=== PATIENT | male | born 1965 | race American Indian/Alaskan Native ===

== ENCOUNTER 2017-05-07 17:01 | Inpatient (IN) | payer OTHER ==
[2017-05-07 17:25] VITALS: BMI 30.4
--- NOTE | 2017-05-07 17:48 | ED PDOC ---
Arrival/HPI - General Chief Complaint: Abnormal Skin Integrity Time Seen by Provider: 05/07/17 17:27 Historian: Patient - History of Present Illness Narrative History of Present Illness (Text): 05/07/17 17:45 52-year-old male presents today with right leg pain and redness that started approximately 4 hours prior to arrival. Patient states he has 5 episodes of cellulitis in that right leg in the past. Patient is complaining of pain swelling and redness to the right leg. Patient states he noticed inflamed right inguinal lymph nodes. Patient states these are the exact symptoms that occurs when ever he has a start of the cellulitis in the leg. He denies fevers or chills. He denies trauma or injury. Denies numbness weakness or tingling in the extremity. No medications taken for pain at home. No other complaints. Time/Duration: 4-6 hours Symptom Onset: Gradual Symptom Course: Worsening Quality: Aching Past Medical History - Provider Review Nursing Documentation Reviewed: Yes - Travel History Have you recently traveled outside [place] w/in the past 3 mons?: No - Infectious Disease Hx of Infectious Diseases: None - Tetanus Immunization Tetanus Immunization: Unknown - Musculoskeletal/Rheumatological Hx Musculoskeletal Disorders: Yes Other/Comment: cellulitis of legs hx. - Psychiatric Hx Substance Use: No - Anesthesia Hx Anesthesia: No Family/Social History - Physician Review Nursing Documentation Reviewed: Yes Family/Social History: Unknown Family HX Smoking Status: Never Smoked Hx Alcohol Use: No Hx Substance Use: No Allergies/Home Meds Allergies/Adverse Reactions: Allergies No Known Allergies Allergy (Verified 05/07/17 17:25) Home Medications: Home Meds Medication Instructions Recorded Confirmed No Known Home Med 05/07/17 05/07/17 Review of Systems - Review of Systems Constitutional: absent: Fatigue, Fevers Respiratory: absent: SOB, Cough Cardiovascular: absent: Chest Pain, Palpitations Gastrointestinal: absent: Abdominal Pain, Vomiting Genitourinary Male: absent: Dysuria Musculoskeletal: Arthralgias. absent: Back Pain, Neck Pain Skin: Cellulitis Neurological: absent: Headache, Dizziness Psychiatric: absent: Anxiety, Depression Physical Exam Vital Signs Reviewed: Yes Vital Signs Temp Pulse Resp BP Pulse Ox 05/07/17 17:28 99.3 F 99 H 18 142/81 98 Temperature: Afebrile Blood Pressure: Normal Pulse: Regular Respiratory Rate: Normal Appearance: Positive for: Well-Appearing, Non-Toxic, Comfortable Pain Distress: None Mental Status: Positive for: Alert and Oriented X 3 - Systems Exam Head: Present: Atraumatic Mouth: Present: Moist Mucous Membranes Neck: Present: Normal Range of Motion Respiratory/Chest: Present: Clear to Auscultation, Good Air Exchange. No: Respiratory Distress, Accessory Muscle Use Cardiovascular: Present: Regular Rate and Rhythm, Normal S1, S2. No: Murmurs Abdomen: No: Tenderness Lower Extremity: Present: CALF TENDERNESS, NORMAL PULSES, Normal ROM, Tenderness (Right leg: There is tenderness swelling and erythema noted over the anterior aspect of the right leg. Sensation and distal pulses intact. Cap refill less than 2.), Swelling, Erythema, Neurovascularly Intact, Capillary Refill < 2 s, Other (Warmth). No: Deformity Neurological: Present: GCS=15, Speech Normal Skin: Present: Warm, Dry Lymphatic: Present: Inguinal Adenopathy (Right sided) Psychiatric: Present: Alert, Oriented x 3 Medical Decision Making ED Course and Treatment: 05/07/17 17:47 52-year-old male with a 4 hour history of right leg pain swelling and erythema. CBC: wbc:16 bands; 4 CMP: bun; 31/ cr 1.5 Lactate: wnl blood cultures pending; Venous duplex of the right lower extremity: no dvt; verbal report from US tech. xray right tib/fib; no fracture, no subcutaneous air. pt started on vanco and zosyn IV 05/07/17 20:[address] reyes; accepts admission; case discussed with resident dr. Donnelly. impression; cellulitis, leg, leukocytosis, bandemia admit to med/surg - Lab Interpretations Lab Results: 05/07/17 17:45 05/07/17 17:45 Lab Results 05/07/17 17:45: WBC 16.0 H, RBC 5.30, Hgb 16.6, Hct 45.6, MCV 86.0, MCH 31.3, MCHC 36.4, RDW 12.8, Plt Count 146, MPV 11.1 H, Gran % 93.0 H, Lymph % (Auto) 3.8 L, [place] % (Auto) 3.0, Eos % (Auto) 0.1 L, Baso % (Auto) 0.1, Gran # 14.87 H , Lymph # 0.6 L, [place] # 0.5, Eos # 0.0, Baso # 0.01, Neutrophils % (Manual) 90 H , Band Neutrophils % 4 H, Lymphocytes % (Manual) 4 L, Atypical Lymphs % 2 H, Monocytes % (Manual) 0 L, Platelet Evaluation Normal 05/07/17 17:45: Sodium 139, Chloride 104, Potassium 4.1, Carbon Dioxide 26, Anion Gap 13, BUN 31 H, Creatinine 1.5 H, Est GFR ( Amer) 59, Est GFR ( Non-Af Amer) 49, Random Glucose 108, Calcium 9.3, Total Bilirubin 0.8, AST 57, ALT 53, Alkaline Phosphatase 69, Total Protein 7.5, Albumin 4.1, Globulin 3.4, Albumin/Globulin Ratio 1.2 05/07/17 17:45: pO2 54, VBG pH 7.40, VBG pCO2 43.0, VBG HCO3 26.6, VBG Total CO2 27.9, VBG O2 Sat (Calc) 95.0 H, VBG Base Excess 1.5, VBG Potassium 4.1, Sodium 138.0, Chloride 105.0, Glucose 110, Lactate 1.5, FiO2 21.0, Venous Blood Potassium 4.1 - RAD Interpretation Radiology Orders: 05/07/17 17:27 DUPLEX LOWER EXTRM VEIN RIGHT [US] Stat 05/07/17 17:48 TIBIA FIBULA RIGHT [RAD] Stat - Medication Orders Current Medication Orders: Discontinued Medications Vancomycin HCl (Vancomycin 1gm) 1 gm in 250 mls @ 167 mls/hr IVPB STAT STA PRN Reason: Protocol Stop: 05/07/17 20:39 Last Admin: 05/07/17 19:53 Dose: 167 mls/hr eMAR Start Stop Document 05/07/17 19:53 IT (Rec: 05/07/17 19:53 IT [id number]) Intravenous Solution Start Date 05/07/17 Start Time 19:53 End Date 05/07/17 End time 21:20 Total Infusion Time 87 Piperacillin Sod/Tazobactam Sod (Zosyn 3.375 In Ns 100ml) 100 mls @ 200 mls/hr IVPB STAT STA PRN Reason: Protocol Stop: 05/07/17 19:39 Last Admin: 05/07/17 19:20 Dose: 200 mls/hr eMAR Start Stop Document 05/07/17 19:20 IT (Rec: 05/07/17 19:22 IT [id number]) Intravenous Solution Start Date 05/07/17 Start Time 19:22 End Date 05/07/17 End time 19:50 Total Infusion Time 28 Ketorolac Tromethamine (Toradol) 30 mg IVP STAT STA Stop: 05/07/17 17:28 Last Admin: 05/07/17 18:47 Dose: 30 mg MAR Pain Assessment Document 05/07/17 18:47 IT (Rec: 05/07/17 18:47 IT [id number]) Pain Reassessment Is this a pain reassessment? No Sleep Is patient sleeping during reassessment? No Presence of Pain Presence of Pain Yes Pain Scale Used Pain Scale Used Numeric Location Left, Right or Bilateral Left Pain Location Body Site Groin Description Description Intermittent Intensity of Pain at present 4 IVP Administration Document 05/07/17 18:47 IT (Rec: 05/07/17 18:47 IT [id number]) Charges for Administration # of IVP Administrations 1 Disposition/Present on Arrival - Present on Arrival Any Indicators Present on Arrival: No History of DVT/PE: No History of Uncontrolled Diabetes: No Urinary Catheter: No History of Decub. Ulcer: No History Surgical Site Infection Following: None - Disposition Have Diagnosis and Disposition been Completed?: Yes Diagnosis: Cellulitis, leg, Bandemia, Leukocytosis Disposition: HOSPITALIZED Disposition Time: 19:45 Patient Plan: Admission Condition: FAIR
[2017-05-07 17:59] LABS: VENOUS BLOOD GAS BASE EXCESS 1.5 mmol/L (0.0-2.0)
[2017-05-07 18:00] LABS: BASO # 0.01 K/mm3 (0.0-2.0); BASO % 0.1 % (0.0-3.0); EOS % 0.1 % (1.5-5.0); GRAN # 14.87 (1.4-6.5); HEMATOCRIT 45.6 % (42.0-52.0); LYMPH # 0.6 (1.2-3.4); LYMPH % 3.8 % (22.0-35.0); MEAN CORPUSCULAR HEMOGLOBIN 31.3 pg (25.0-35.0); MEAN CORPUSCULAR HGB CONC 36.4 g/dl (31.0-37.0); MEAN PLATELET VOLUME 11.1 fl (7.0-11.0); MONO # 0.5 (0.1-0.6); PLATELET COUNT 146 10^3/uL (120.0-450.0); RED CELL DISTRIBUTION WIDTH 12.8 % (11.5-14.5)
[2017-05-07 18:08] LABS: ALB/GLOB RATIO 1.2 (1.1-1.8); BILIRUBIN,TOTAL 0.8 mg/dL (0.2-1.3); CALCIUM 9.3 mg/dL (8.4-10.5); POTASSIUM 4.1 mmol/L (3.6-5.0); TOTAL PROTEIN 7.5 g/dL (5.8-8.3)
--- NOTE | 2017-05-07 18:36 | US ---
PROCEDURE: Right lower extremity venous US HISTORY: Leg pain and swelling. Evaluate for DVT. PHYSICIAN(S): Zurdo Little M.D. TECHNIQUE: Duplex sonography and color-flow Doppler with graded compression were used to evaluate the deep venous system of the right lower extremity. FINDINGS: The visualized deep venous system of the right lower extremity is sonographically normal and compressible. Normal waveforms and augmentation are seen. There is no sonographic evidence for deep venous thrombosis in the visualized segments of the right lower extremity. IMPRESSION: 1. No sonographic evidence for deep venous thrombosis in the visualized segments of the right lower extremity.
[2017-05-07 19:02] LABS: ATYPICAL LYMPHOCYTE 2 % (0.0-0.0); BAND 4 % (0-2); NEUTROPHIL 90 % (50.0-70.0)
[2017-05-07 19:03] LABS: PLATELET ESTIMATE NORMAL (NORMAL)
[2017-05-07] MEDS ORDERED: Vancomycin 1gm in NS 250ml 1 GM/250 ML BAG IVPB STA (19:10)
[2017-05-07] MEDS ORDERED: Piperacillin/Tazobact 3.375 gm 100 ML IVPB STA ×2 (19:10→20:38)
--- NOTE | 2017-05-07 22:54 | CP.PCM.HP ---
History of Present Illness - History of Present Illness History of Present Illness: H&P Dr. Horton Service CC: RLE pain & swelling 52 M with no significant PMHx presents to the [facility] [place] ED with complaints of RLE pain & swelling. Pt states at approx 11am this morning, he experienced a heaviness, swelling, and pain localized to the right groin. After a couple of hours in the afternoon, he started to realized his right leg develop "red streaks" and was warm to the touch. Pt states that at that time he felt feverish and overall not so well. Pt states that he has experienced cellulitis approximately 5 times in the past and his current symptoms are similar in presentation to his previous episodes. 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 Pt was seen and examined at bedside. Pt has mild complaints of Right groin swelling and pain, rated at a 5/10 and localized without radiation. Pt currently denies RLE pain. He was given NSAIDs and IV abx in ED. Pt denied fever, chills, sob, chest pains, abdominal pains, n/v/d/c or urinary symptoms. 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 - PSYCHIATRIC Hx Substance Use: No - SURGICAL HISTORY Hx Surgeries: No - ANESTHESIA Hx Anesthesia: No Meds Allergies/Adverse Reactions: Allergies Allergy/AdvReac Type Severity Reaction Status Date / Time No Known Allergies Allergy Verified 05/07/17 17:25 Physical Exam - Constitutional Appears: No Acute Distress - Head Exam Head Exam: ATRAUMATIC, NORMAL INSPECTION, NORMOCEPHALIC - Eye Exam Eye Exam: EOMI, Normal appearance, PERRL Pupil Exam: NORMAL ACCOMODATION, PERRL - ENT Exam ENT Exam: Mucous Membranes Moist, Normal Exam - Neck Exam Neck exam: Positive for: Normal Inspection - Respiratory Exam Respiratory Exam: Clear to Auscultation Bilateral, NORMAL BREATHING PATTERN - Cardiovascular Exam Cardiovascular Exam: REGULAR RHYTHM, +S1, +S2 - GI/Abdominal Exam GI & Abdominal Exam: Normal Bowel Sounds, Soft. absent: Tenderness - Exam Additional comments: Inguinal tenderness to palpation - Extremities Exam Additional comments: RLE erythema - Back Exam Back exam: NORMAL INSPECTION - Neurological Exam Neurological exam: Alert, CN II-XII Intact, Normal Gait, Oriented x3, Reflexes Normal - Psychiatric Exam Psychiatric exam: Normal Affect, Normal Mood - Skin Skin Exam: Dry, Intact, Normal Color, Warm Additional comments: RLE Erythema Results - Vital Signs Recent Vital Signs: Last Vital Signs Temp 99.2 F 05/07/17 21:28 Pulse 82 05/07/17 21:28 Resp 17 05/07/17 21:28 BP 141/61 05/07/17 21:28 Pulse Ox 98 05/07/17 21:28 - Labs Result Diagrams: 05/07/17 17:45 05/07/17 17:45 Assessment & Plan - Assessment and Plan (Free Text) Assessment: 52 M with no significant PMHx presented to the [facility] [place] ED with complaints of RLE erythema, swelling, and pain. Pt is admitted for RLE Cellulitis RLE Cellulitis - IV vancomycin and zosyn - Pedal pulses 3+ b/l - Venous duplex of the right lower extremity: no dvt - Xray right tib/fib; no fracture, no subcutaneous air. - Fu Bcx - Warm compress and elevate - ID Dr. Oliva consulted Leukocytosis with bandemia - 2/2 RLE - WBC: 16 - fu BCx - Continue IV abx - afebrile - Fu ID reccs Inguinal Lymphadenopathy/pain - 2/2 RLE Cellulitis - analgesics - continue to monitor JASON - dehydration - prerenal, BUN: 31, Cr: 1.5 - Continue to monitor BUN/Cr, UOP - avoid nephrotoxic drugs GI PPx - Protonix DVT PPx - Heparin Seen reviewed and discussed with attending
[2017-05-08] MEDS: Piperacillin/Tazobact 3.375 gm 100 ML IVPB SCH ×2 (00:37→06:54)
[2017-05-08 06:25] LABS: BASO # 0.01 K/mm3 (0.0-2.0); BASO % 0.1 % (0.0-3.0); EOS % 0.1 % (1.5-5.0); GRAN # 12.06 (1.4-6.5); GRAN % 90.4 % (50.0-68.0); HEMATOCRIT 43.1 % (42.0-52.0); LYMPH # 0.6 (1.2-3.4); LYMPH % 4.7 % (22.0-35.0); MEAN CELL VOLUME 86.5 fl (80.0-105.0); MEAN CORPUSCULAR HEMOGLOBIN 30.7 pg (25.0-35.0); MEAN CORPUSCULAR HGB CONC 35.5 g/dl (31.0-37.0); MEAN PLATELET VOLUME 9.9 fl (7.0-11.0); MONO # 0.6 (0.1-0.6); MONO % 4.7 % (1.0-6.0); RED CELL DISTRIBUTION WIDTH 13.4 % (11.5-14.5); WHITE BLOOD COUNT 13.3 10^3/ul (4.5-11.0)
[2017-05-08 06:30] LABS: INR 1.17 (0.93-1.08); PARTIAL THROMBOPLASTIN TIME 31.5 Seconds (23.7-30.8)
[2017-05-08] MEDS: Pantoprazole 40 mg EC Tab PO SCH (06:55)
[2017-05-08 06:57] LABS: ALKALINE PHOSPHATASE 60 U/L (38-126); ALT/SGPT 46 U/L (7-56); AST/SGOT 40 U/L (17-59); BILIRUBIN,TOTAL 0.9 mg/dL (0.2-1.3); BLOOD UREA NITROGEN 20 mg/dL (7-21); CALCIUM 8.7 mg/dL (8.4-10.5); CARBON DIOXIDE 24 mmol/L (21-33); CHLORIDE 110 mmol/L (98-107); GFR AFRICAN-AMERICAN > 60; GLUCOSE,RANDOM 106 mg/dL (70-110); POTASSIUM 4.2 mmol/L (3.6-5.0); SODIUM 141 mmol/L (132-148); TOTAL PROTEIN 6.5 g/dL (5.8-8.3)
--- NOTE | 2017-05-08 07:45 | RAD ---
PROCEDURE: Radiographs of the right tibia and fibula. HISTORY: right lower leg pain COMPARISON: None available. TECHNIQUE: Frontal and lateral views obtained. FINDINGS: BONES: No fracture or destructive lesion. JOINT SPACES: Unremarkable. OTHER FINDINGS: None. IMPRESSION: Unremarkable radiographs of the right tibia and fibula.
[2017-05-08] MEDS: cefTRIAXone 1 gm 1 GM/100 ML BAG IVPB SCH (07:48)
[2017-05-08] MEDS: Sodium Chloride 0.9% 1,000 ML IV SCH (09:35)
[2017-05-08] MEDS: Vancomycin 1gm in NS 250ml 1 GM/250 ML BAG IVPB SCH ×2 (11:34→21:31)
--- NOTE | 2017-05-08 14:45 | CP.PCM.PN ---
Subjective - Date & Time of Evaluation Date of Evaluation: 05/08/17 Time of Evaluation: 06:00 - Subjective Subjective: 52 M with no significant PMHx [place] [facility] [place] complaints of RLE pain & swelling. Pt states at approx 11am this morning, he experienced a heaviness, swelling, and pain localized to the right groin. After a couple of hours in the afternoon, he started to realized his right leg develop "red streaks" and was warm to the touch. Pt states that at that time he felt feverish and overall not so well. Pt states that he has experienced cellulitis approximately 5 times in the past and his current symptoms are similar in presentation to his previous episodes. 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 Pt was seen and examined at bedside. He was laying down and resting comfortably. He denied any pain to the right extremity laying down, but states if he he stands for a while it gets a little painful. He denies any SOB, CP, Fever, N, V, difficulty urinating, dysuria, or any other complaints. Objective - Vital Signs/Intake and Output Vital Signs (last 24 hours): Temp Pulse Resp BP Pulse Ox 100.4 F H 74 20 111/61 97 05/08/17 08:27 05/08/17 08:27 05/08/17 08:27 05/08/17 08:27 05/08/17 08:27 Intake and Output: 05/08/17 05/08/17 06:59 18:59 Intake Total 540 620 Balance 540 620 - Medications Medications: Current Medications Acetaminophen (Tylenol 325mg Tab) 650 mg PO Q6H PRN PRN Reason: Fever >100.4 F Heparin Sodium (Porcine) (Heparin) 5,000 units SC Q12 ANISHA PRN Reason: Protocol Last Admin: 05/08/17 09:40 Dose: 5,000 units Vancomycin HCl (Vancomycin 1gm) 1 gm in 250 mls @ 167 mls/hr IVPB Q12H [facility]ISHA PRN Reason: Protocol Last Admin: 05/08/17 11:34 Dose: 167 mls/hr Ceftriaxone Sodium (Rocephin 1 Gram Ivpb) 1 gm in 100 mls @ 100 mls/hr IVPB DAILY ANISHA PRN Reason: Protocol Last Admin: 05/08/17 07:48 Dose: 100 mls/hr Sodium Chloride (Sodium Chloride 0.9%) 1,000 mls @ 100 mls/hr IV .Q10H [facility] Last Admin: 05/08/17 09:35 Dose: 100 mls/hr Ibuprofen (Motrin Tab) 600 mg PO Q6H PRN PRN Reason: Pain, moderate (4-7) Pantoprazole Sodium (Protonix Ec Tab) 40 mg PO 0600 [facility] Last Admin: 05/08/17 06:55 Dose: 40 mg - Labs Labs: 05/08/17 06:00 05/08/17 06:00 PT 12.6 Seconds (9.9-11.8) H 05/08/17 06:00 INR 1.17 (0.93-1.08) H 05/08/17 06:00 APTT 31.5 Seconds (23.7-30.8) H 05/08/17 06:00 - Constitutional Appears: Non-toxic, No Acute Distress - Head Exam Head Exam: ATRAUMATIC, NORMAL INSPECTION, NORMOCEPHALIC - Eye Exam Eye Exam: EOMI, Normal appearance, PERRL - ENT Exam ENT Exam: Mucous Membranes Moist, Normal Exam - Neck Exam Neck Exam: Full ROM, Normal Inspection. absent: Lymphadenopathy - Respiratory Exam Respiratory Exam: Clear to Ausculation Bilateral, NORMAL BREATHING PATTERN - Cardiovascular Exam Cardiovascular Exam: REGULAR RHYTHM, +S1, +S2. absent: Murmur - GI/Abdominal Exam GI & Abdominal Exam: Normal Bowel Sounds. absent: Tenderness - Extremities Exam Additional comments: lower right extremity warm, erythemetous, not painful to touch - Back Exam Back Exam: NORMAL INSPECTION. absent: CVA tenderness (L), CVA tenderness (R) - Neurological Exam Neurological Exam: Awake, CN II-XII Intact, Oriented x3 - Psychiatric Exam Psychiatric exam: Normal Mood - Skin Skin Exam: Warm Additional comments: warm right lower leg Assessment and Plan - Assessment and Plan (Free Text) Assessment: 52 M with no significant PMHx presented [place] [facility] [place] with complaints of RLE erythema, swelling, and pain. Pt is admitted for RLE Cellulitis and is currently being treated for it. Plan: RLE Cellulitis - IV vancomycin and ceftriaxone active, zosyn DC - Pedal pulses 3+ b/l - Venous duplex of the right lower extremity: no dvt - Xray right tib/fib; no fracture, no subcutaneous air. - Fu Bcx - Warm compress and elevate - ID Dr. Oliva consulted - Area of induration, noted with surgical marker Leukocytosis with bandemia - 2/2 RLE - Temp 100.4, will continue to monitor - WBC: 13.3 - fu BCx - Continue IV abx - Fu ID recs Inguinal Lymphadenopathy/pain - 2/2 RLE Cellulitis - analgesics - continue to monitor JASON - dehydration - prerenal, BUN: 20, Cr: 1.3 - Continue to monitor BUN/Cr, UOP - avoid nephrotoxic drugs Elevated Creatine Kinase-likely secondary to exercise -CK 864 -Fluids started NS at 100 -continue to monitor GI PPx - Protonix DVT PPx - Heparin Seen reviewed and discussed with attending
[2017-05-08 15:23] LABS: URINE BILIRUBIN NEGATIVE (NEGATIVE); URINE BLOOD NEGATIVE (NEGATIVE); URINE GLUCOSE (UA) NEGATIVE (NEGATIVE); URINE KETONE NEGATIVE (NEGATIVE); URINE LEUKOCYTE ESTERASE NEGATIVE Leu/uL (NEGATIVE); URINE PROTEIN NEGATIVE mg/dL (<30 mg/dL); URINE UROBILINOGEN 0.2 E.U./dL (<1 E.U./dL)
--- NOTE | 2017-05-08 15:24 | CP.PCM.CON ---
History of Present Illness - History of Present Illness History of Present Illness: 52 year old male with history of cellulitis of the lower extremities in the past came in to [facility] complaining of right lower extremity swelling and pain since yesterday. Apparently, he started feeling streaks on his leg, up to his groin area yesterday which had worsened over the course of the day. He uses work boots and apparently his feet get wet with sweat and he also has cracks in between his toes (web of the toes). He then felt feverish prior to coming [place] [facility] [place] He denies soaking his feet in water, he denies walking barefoot on soil, no has no animal contacts. He denies headache or dizziness, no chest pain, no SOB, no cough or colds, no nausea or vomiting, no abdominal pain, no diarrhea, no dysuria. Infectious diseases consult is requested to further evaluate and manage. Review of Systems - Review of Systems All systems: reviewed and no additional remarkable complaints except (as per HPI ) Past Patient History - Infectious Disease Hx of Infectious Diseases: None - Tetanus Immunizations Tetanus Immunization: Unknown - Past Social History Smoking Status: Never Smoked - MUSCULOSKELETAL/RHEUMATOLOGICAL Hx Musculoskeletal Disorders: Yes Other/Comment: cellulitis of legs hx. - PSYCHIATRIC Hx Substance Use: No - SURGICAL HISTORY Hx Surgeries: No - ANESTHESIA Hx Anesthesia: No Meds Allergies/Adverse Reactions: Allergies Allergy/AdvReac Type Severity Reaction Status Date / Time No Known Allergies Allergy Verified 05/07/17 17:25 - Medications Medications: Current Medications Acetaminophen (Tylenol 325mg Tab) 650 mg PO Q6H PRN PRN Reason: Fever >100.4 F Heparin Sodium (Porcine) (Heparin) 5,000 units SC Q12 [facility] PRN Reason: Protocol Last Admin: 05/08/17 00:52 Dose: Not Given Vancomycin HCl (Vancomycin 1gm) 1 gm in 250 mls @ 167 mls/hr IVPB Q12H [facility] PRN Reason: Protocol Ibuprofen (Motrin Tab) 600 mg PO Q6H PRN PRN Reason: Pain, moderate (4-7) Pantoprazole Sodium (Protonix Ec Tab) 40 mg PO 0600 [facility] Physical Exam - Constitutional Appears: Non-toxic, No Acute Distress - Head Exam Head Exam: NORMAL INSPECTION - ENT Exam ENT Exam: Mucous Membranes Moist - Neck Exam Neck exam: Negative for: Lymphadenopathy, Meningismus - Respiratory Exam Respiratory Exam: Decreased Breath Sounds - Cardiovascular Exam Cardiovascular Exam: +S1, +S2 - GI/Abdominal Exam GI & Abdominal Exam: Soft. absent: Tenderness - Extremities Exam Additional comments: right leg with swelling and erythema; webs of toes on right foot have cracks in the skin Results - Vital Signs Recent Vital Signs: Last Vital Signs Temp 99.5 F 05/07/17 22:30 Pulse 84 05/07/17 22:30 Resp 20 05/07/17 22:30 BP 130/76 05/07/17 22:30 Pulse Ox 98 05/07/17 21:28 - Labs Result Diagrams: 05/08/17 06:00 05/08/17 06:00 Labs: Laboratory Results - last 24 hr 05/08/17 05/08/17 00:40 06:00 WBC 13.3 H RBC 4.98 Hgb 15.3 Hct 43.1 MCV 86.5 MCH 30.7 MCHC 35.5 RDW 13.4 Plt Count 119 L MPV 9.9 Gran % 90.4 H Lymph % (Auto) 4.7 L Sharp % (Auto) 4.7 Eos % (Auto) 0.1 L Baso % (Auto) 0.1 Gran # 12.06 H Lymph # 0.6 L Sharp # 0.6 Eos # 0.0 Baso # 0.01 Lactic Acid 1.4 Assessment & Plan - Assessment and Plan (Free Text) Plan: Assessment Sepsis due to right lower extremity cellulitis with associated fungal infection on the webs of the toes of the right foot history of cellulitis of the lower extremities in the past Plan Started patient on Vancomycin and Rocephin pending blood cx; will also give Clotrimazole cream to the right foot will monitor clinical response
[2017-05-08 15:28] LABS: URINE APPEARANCE CLEAR (CLEAR); URINE COLOR YELLOW (YELLOW)
[2017-05-08] MEDS: Clotrimazole 1% Top Soln(10 ml) TOP SCH ×2 (18:47→20:23)
[2017-05-09] MEDS: Pantoprazole 40 mg EC Tab PO SCH (05:30)
[2017-05-09] MEDS: Sodium Chloride 0.9% 1,000 ML IV SCH (06:00)
[2017-05-09 06:31] LABS: EOS # 0.1 (0.0-0.7); EOS % 0.9 % (1.5-5.0); GRAN # 4.93 (1.4-6.5); GRAN % 70.9 % (50.0-68.0); HEMATOCRIT 42.5 % (42.0-52.0); LYMPH # 1.2 (1.2-3.4); LYMPH % 17.6 % (22.0-35.0); MEAN CELL VOLUME 87.8 fl (80.0-105.0); MEAN CORPUSCULAR HEMOGLOBIN 30.4 pg (25.0-35.0); MEAN CORPUSCULAR HGB CONC 34.6 g/dl (31.0-37.0); MONO # 0.7 (0.1-0.6); MONO % 10.6 % (1.0-6.0); RED CELL DISTRIBUTION WIDTH 13.5 % (11.5-14.5)
[2017-05-09 06:39] LABS: ALB/GLOB RATIO 0.9 (1.1-1.8); ALKALINE PHOSPHATASE 53 U/L (38-126); ALT/SGPT 42 U/L (7-56); AST/SGOT 33 U/L (17-59); BILIRUBIN,TOTAL 0.5 mg/dL (0.2-1.3); BLOOD UREA NITROGEN 15 mg/dL (7-21); CALCIUM 8.7 mg/dL (8.4-10.5); CARBON DIOXIDE 27 mmol/L (21-33); CHLORIDE 109 mmol/L (98-107); GFR AFRICAN-AMERICAN > 60; GLUCOSE,RANDOM 102 mg/dL (70-110); POTASSIUM 4.5 mmol/L (3.6-5.0); SODIUM 141 mmol/L (132-148); TOTAL PROTEIN 6.6 g/dL (5.8-8.3)
[2017-05-09] MEDS: Vancomycin 1gm in NS 250ml 1 GM/250 ML BAG IVPB SCH ×2 (09:17→21:13)
[2017-05-09] MEDS: Clotrimazole 1% Top Soln(10 ml) TOP SCH ×2 (09:17→18:42)
[2017-05-09] MEDS: cefTRIAXone 1 gm 1 GM/100 ML BAG IVPB SCH (09:18)
--- NOTE | 2017-05-09 12:17 | CP.PCM.PN ---
Subjective - Date & Time of Evaluation Date of Evaluation: 05/09/17 Time of Evaluation: 11:25 - Subjective Subjective: Comfortable in bed, not in distress, afebrile, less pain in the right leg and right groin. Objective - Vital Signs/Intake and Output Vital Signs (last 24 hours): Temp Pulse Resp BP Pulse Ox 98.2 F 57 L 20 116/65 100 05/09/17 07:45 05/09/17 07:45 05/09/17 07:45 05/09/17 07:45 05/09/17 07:45 Intake and Output: 05/09/17 05/09/17 06:59 18:59 Intake Total 720 Output Total 750 Balance -30 - Medications Medications: Current Medications Acetaminophen (Tylenol 325mg Tab) 650 mg PO Q6H PRN PRN Reason: Fever >100.4 F Clotrimazole (Lotrimin Af 1%) 0 ml TOP BID [facility] Last Admin: 05/08/17 20:23 Dose: 1 applic Heparin Sodium (Porcine) (Heparin) 5,000 units SC Q12 [facility] PRN Reason: Protocol Last Admin: 05/08/17 21:28 Dose: Not Given Vancomycin HCl (Vancomycin 1gm) 1 gm in 250 mls @ 167 mls/hr IVPB Q12H [facility] PRN Reason: Protocol Last Admin: 05/08/17 21:31 Dose: 167 mls/hr Ceftriaxone Sodium (Rocephin 1 Gram Ivpb) 1 gm in 100 mls @ 100 mls/hr IVPB DAILY [facility] PRN Reason: Protocol Last Admin: 05/08/17 07:48 Dose: 100 mls/hr Sodium Chloride (Sodium Chloride 0.9%) 1,000 mls @ 100 mls/hr IV .Q10H [facility] Last Admin: 05/09/17 06:00 Dose: 100 mls/hr Ibuprofen (Motrin Tab) 600 mg PO Q6H PRN PRN Reason: Pain, moderate (4-7) Pantoprazole Sodium (Protonix Ec Tab) 40 mg PO 0600 [facility] Last Admin: 05/09/17 05:30 Dose: 40 mg - Labs Labs: 05/09/17 06:00 05/09/17 06:00 PT 12.6 Seconds (9.9-11.8) H 05/08/17 06:00 INR 1.17 (0.93-1.08) H 05/08/17 06:00 APTT 31.5 Seconds (23.7-30.8) H 05/08/17 06:00 - Constitutional Appears: Non-toxic, No Acute Distress - Head Exam Head Exam: NORMAL INSPECTION - ENT Exam ENT Exam: Mucous Membranes Moist - Neck Exam Neck Exam: absent: Meningismus - Respiratory Exam Respiratory Exam: Decreased Breath Sounds - Cardiovascular Exam Cardiovascular Exam: +S1, +S2 - GI/Abdominal Exam GI & Abdominal Exam: Soft. absent: Tenderness - Extremities Exam Additional comments: decreased swelling of the right leg Assessment and Plan - Assessment and Plan (Free Text) Plan: Assessment Sepsis due to right lower extremity cellulitis with associated fungal infection on the webs of the toes of the right foot, slowly improving history of cellulitis of the lower extremities in the past Plan continue Vancomycin and Rocephin day 2; blood cx are negative; continue Clotrimazole cream to the right foot will continue to monitor clinical response
--- NOTE | 2017-05-09 12:18 | CP.PCM.PN ---
Subjective - Date & Time of Evaluation Date of Evaluation: 05/09/17 Time of Evaluation: 06:00 - Subjective Subjective: 52 M with no significant PMHx presents to the [facility] [place] ED with complaints of RLE pain & swelling. Pt states at approx 11am this morning, he experienced a heaviness, swelling, and pain localized to the right groin. After a couple of hours in the afternoon, he started to realized his right leg develop "red streaks" and was warm to the touch. Pt states that at that time he felt feverish and overall not so well. Pt states that he has experienced cellulitis approximately 5 times in the past and his current symptoms are similar in presentation to his previous episodes. Pt works as a [employer] and attributes his previous infx on his work boots, where he is on his feet for an extended period of times, often sweating into the boots and unable to exercise proper hygiene at times. Pt was seen and examined at bedside. He was laying down comfortably, and denies any pain to the right lower leg. He denies any SOB, CP, Fever, N, V, difficulty urinating, dysuria, or any other complaints. He has no additional concerns. Objective - Vital Signs/Intake and Output Vital Signs (last 24 hours): Temp Pulse Resp BP Pulse Ox 98.2 F 57 L 20 116/65 100 05/09/17 07:45 05/09/17 07:45 05/09/17 07:45 05/09/17 07:45 05/09/17 07:45 Intake and Output: 05/09/17 05/09/17 06:59 18:59 Intake Total 720 Output Total 750 Balance -30 - Medications Medications: Current Medications Acetaminophen (Tylenol 325mg Tab) 650 mg PO Q6H PRN PRN Reason: Fever >100.4 F Clotrimazole (Lotrimin Af 1%) 0 ml TOP BID ANISHA Last Admin: 05/09/17 09:17 Dose: 1 applic Heparin Sodium (Porcine) (Heparin) 5,000 units SC Q12 ANISHA PRN Reason: Protocol Last Admin: 05/09/17 09:16 Dose: 5,000 units Vancomycin HCl (Vancomycin 1gm) 1 gm in 250 mls @ 167 mls/hr IVPB Q12H ANISHA PRN Reason: Protocol Last Admin: 05/09/17 09:17 Dose: 167 mls/hr Ceftriaxone Sodium (Rocephin 1 Gram Ivpb) 1 gm in 100 mls @ 100 mls/hr IVPB DAILY ANISHA PRN Reason: Protocol Last Admin: 05/09/17 09:18 Dose: 100 mls/hr Sodium Chloride (Sodium Chloride 0.9%) 1,000 mls @ 100 mls/hr IV .Q10H [facility] Last Admin: 05/09/17 06:00 Dose: 100 mls/hr Ibuprofen (Motrin Tab) 600 mg PO Q6H PRN PRN Reason: Pain, moderate (4-7) Pantoprazole Sodium (Protonix Ec Tab) 40 mg PO 0600 [facility] Last Admin: 05/09/17 05:30 Dose: 40 mg - Labs Labs: 05/09/17 06:00 05/09/17 06:00 PT 12.6 Seconds (9.9-11.8) H 05/08/17 06:00 INR 1.17 (0.93-1.08) H 05/08/17 06:00 APTT 31.5 Seconds (23.7-30.8) H 05/08/17 06:00 - Constitutional Appears: Non-toxic, No Acute Distress - Head Exam Head Exam: ATRAUMATIC, NORMAL INSPECTION, NORMOCEPHALIC - Eye Exam Eye Exam: EOMI, Normal appearance, PERRL - ENT Exam ENT Exam: Mucous Membranes Moist, Normal Exam - Neck Exam Neck Exam: Normal Inspection. absent: Lymphadenopathy - Respiratory Exam Respiratory Exam: Clear to Ausculation Bilateral, NORMAL BREATHING PATTERN - Cardiovascular Exam Cardiovascular Exam: REGULAR RHYTHM, +S1, +S2, +S4 - GI/Abdominal Exam GI & Abdominal Exam: Normal Bowel Sounds. absent: Tenderness - Extremities Exam Additional comments: Right lower leg still has erythema and warm to touch, no tenderness. Same size induration as yesterday - Back Exam Back Exam: NORMAL INSPECTION - Neurological Exam Neurological Exam: Awake, CN II-XII Intact, Normal Gait, Oriented x3 - Psychiatric Exam Psychiatric exam: Normal Mood Assessment and Plan - Assessment and Plan (Free Text) Assessment: 52 M with no significant PMHx presented to the [facility] ED with complaints of RLE erythema, swelling, and pain. Pt is admitted for treatment of RLE Cellulitis. Plan: RLE Cellulitis - continue IV vancomycin and ceftriaxone - Pedal pulses 3+ b/l - Venous duplex of the right lower extremity: no dvt - Xray right tib/fib; no fracture, no subcutaneous air. - Fu Bcx - Warm compress and elevate - ID Dr. Oliva consulted - Area of induration, noted with surgical marker, same as yesterday Leukocytosis with bandemia - 2/2 RLE - Temp 98.2, will continue to monitor - WBC: 7.0, Afebrile - fu BCx - Continue IV abx - Fu ID recs of oral doxy and Keflex when discharged per Latasha Inguinal Lymphadenopathy/pain - 2/2 RLE Cellulitis - analgesics - continue to monitor JASON-resolved - BUN: 15, Cr: 1.2 - Continue to monitor BUN/Cr, - avoid nephrotoxic drugs Elevated Creatine Kinase-likely secondary to exercise -CK 454. improving -Continue fluids -continue to monitor GI PPx - Protonix DVT PPx - Heparin Seen reviewed and discussed with attending
[2017-05-10] MEDS: Sodium Chloride 0.9% 1,000 ML IV SCH (02:00)
[2017-05-10] MEDS: Pantoprazole 40 mg EC Tab PO SCH (05:25)
[2017-05-10 08:42] LABS: BASO # 0.01 K/mm3 (0.0-2.0); BASO % 0.2 % (0.0-3.0); EOS # 0.1 (0.0-0.7); EOS % 1.7 % (1.5-5.0); GRAN # 2.63 (1.4-6.5); GRAN % 62.4 % (50.0-68.0); HEMATOCRIT 42.1 % (42.0-52.0); LYMPH % 23.3 % (22.0-35.0); MEAN CELL VOLUME 87.2 fl (80.0-105.0); MEAN CORPUSCULAR HEMOGLOBIN 30.4 pg (25.0-35.0); MEAN CORPUSCULAR HGB CONC 34.9 g/dl (31.0-37.0); MEAN PLATELET VOLUME 10.2 fl (7.0-11.0); MONO # 0.5 (0.1-0.6); MONO % 12.4 % (1.0-6.0); RED CELL DISTRIBUTION WIDTH 13.2 % (11.5-14.5); WHITE BLOOD COUNT 4.2 10^3/ul (4.5-11.0)
[2017-05-10 08:47] VITALS: BP 127/75; PULSE 57; RESP 20; TEMP 97.4; O2SAT 96
[2017-05-10] MEDS: cefTRIAXone 1 gm 1 GM/100 ML BAG IVPB SCH (09:39)
[2017-05-10] MEDS: Clotrimazole 1% Top Soln(10 ml) TOP SCH (09:40)
[2017-05-10 10:33] LABS: ALKALINE PHOSPHATASE 50 U/L (38-126); ALT/SGPT 40 U/L (7-56); AST/SGOT 35 U/L (17-59); BILIRUBIN,TOTAL 0.5 mg/dL (0.2-1.3); BLOOD UREA NITROGEN 14 mg/dL (7-21); CALCIUM 8.9 mg/dL (8.4-10.5); CARBON DIOXIDE 27 mmol/L (21-33); CHLORIDE 107 mmol/L (98-107); GFR AFRICAN-AMERICAN > 60; GLUCOSE,RANDOM 96 mg/dL (70-110); POTASSIUM 4.3 mmol/L (3.6-5.0); SODIUM 139 mmol/L (132-148); TOTAL PROTEIN 6.6 g/dL (5.8-8.3)
[2017-05-10] MEDS: Vancomycin 1gm in NS 250ml 1 GM/250 ML BAG IVPB SCH (10:40)
--- NOTE | 2017-05-10 14:33 | PN ---
DATE: 05/10/2017 SUBJECTIVE: The patient is in room 571, bed 2. The patient is doing well and the patient is tolerating antibiotics well. Nontoxic. No fevers or chills. PHYSICAL EXAMINATION: VITAL SIGNS: Temperature is 98, blood pressure is 127/70, respiratory rate is 20, and heart rate of 80. HEENT: Unremarkable. NECK: Supple. LUNGS: Decrease breath sounds. HEART: . ABDOMEN: Soft. EXTREMITIES: Examination of leg is much improved and he is able to walk on it. He is doing well. The erythema is resolved. LABORATORY DATA: Reveals white count of 4.2, hemoglobin of 14, and platelets are 119 that is down to 115. Coagulation is noted. Chemistries reveals BUN of 14 and creatinine of 1.2. C-reactive protein is greater than 15. Urinalysis is noted and the patient had x-ray, unremarkable x-ray. ASSESSMENT AND PLAN: This is a 52-year-old with sepsis due to right lower extremity cellulitis associated with fungal infection and history of cellulitis of lower extremity, on vancomycin, ceftriaxone and I was called by Dr. Satnam Sagastume who is covering for Dr. oHrton . Dr. Satnam Sagastume would like to discharge the patient today and one option is possible p.o. doxycycline and p.o. Augmentin for empiric therapy, concerned about the leukopenia 4.2. We would recommend HIV test also as a matter of routine because of his age of 52. We will also concerning the patient although has sed rate of 1 and does have elevated C-reactive protein and chronic inflammatory processes, osteomyelitis also is concerned because of C-reactive protein of greater than 15 and as far the blood cultures are negative and the patient should have workup for osteomyelitis and MRI of the leg and/or bone scan if unable to get an MRI. Case discussed with Dr. Satnam Sagastume. If the patient is able to tolerate, we will order an MRI of the leg to rule out osteomyelitis. Barrington Oliva MD
--- NOTE | 2017-05-10 14:54 | CP.PCM.DIS ---
<CANDACE WHYTE - Last Filed: 05/10/17 14:43> Provider - Provider Date of Admission: 05/07/17 19:45 Attending physician: Deny Shen MD Primary care physician: Deny Shen MD Consults: ID: [id number] Time Spent in preparation of Discharge (in minutes): 45 Hospital Course - Lab Results Lab Results: Most Recent Lab Values WBC 4.2 10^3/ul (4.5-11.0) L D 05/10/17 08:20 RBC 4.83 10^6/uL (3.5-6.1) 05/10/17 08:20 Hgb 14.7 g/dL (14.0-18.0) 05/10/17 08:20 Hct 42.1 % (42.0-52.0) 05/10/17 08:20 MCV 87.2 fl (80.0-105.0) 05/10/17 08:20 MCH 30.4 pg (25.0-35.0) 05/10/17 08:20 MCHC 34.9 g/dl (31.0-37.0) 05/10/17 08:20 RDW 13.2 % (11.5-14.5) 05/10/17 08:20 Plt Count 115 10^3/uL (120.0-450.0) L 05/10/17 08:20 MPV 10.2 fl (7.0-11.0) 05/10/17 08:20 Gran % 62.4 % (50.0-68.0) 05/10/17 08:20 Lymph % (Auto) 23.3 % (22.0-35.0) 05/10/17 08:20 [place] % (Auto) 12.4 % (1.0-6.0) H 05/10/17 08:20 Eos % (Auto) 1.7 % (1.5-5.0) 05/10/17 08:20 Baso % (Auto) 0.2 % (0.0-3.0) 05/10/17 08:20 Gran # 2.63 (1.4-6.5) 05/10/17 08:20 Lymph # 1.0 (1.2-3.4) L 05/10/17 08:20 [place] # 0.5 (0.1-0.6) 05/10/17 08:20 Eos # 0.1 (0.0-0.7) 05/10/17 08:20 Baso # 0.01 K/mm3 (0.0-2.0) 05/10/17 08:20 Neutrophils % (Manual) 90 % (50.0-70.0) H 05/07/17 17:45 Band Neutrophils % 4 % (0-2) H 05/07/17 17:45 Lymphocytes % (Manual) 4 % (22.0-35.0) L 05/07/17 17:45 Atypical Lymphs % 2 % (0.0-0.0) H 05/07/17 17:45 Monocytes % (Manual) 0 % (1.0-6.0) L 05/07/17 17:45 Platelet Evaluation Normal (NORMAL) 05/07/17 17:45 ESR 1 mm/hr (0.00-15.0) 05/08/17 06:00 PT 12.6 Seconds (9.9-11.8) H 05/08/17 06:00 INR 1.17 (0.93-1.08) H 05/08/17 06:00 APTT 31.5 Seconds (23.7-30.8) H 05/08/17 06:00 pO2 54 mm/Hg (30-55) 05/07/17 17:45 VBG pH 7.40 (7.32-7.43) 05/07/17 17:45 VBG pCO2 43.0 (40-60) 05/07/17 17:45 VBG HCO3 26.6 mmol/l (21-28) 05/07/17 17:45 VBG Total CO2 27.9 mmol.L (22-28) 05/07/17 17:45 VBG O2 Sat (Calc) 95.0 % (40-65) H 05/07/17 17:45 VBG Base Excess 1.5 mmol/L (0.0-2.0) 05/07/17 17:45 VBG Potassium 4.1 mmol/L (3.6-5.2) 05/07/17 17:45 Sodium 138.0 mmol/L (132-148) 05/07/17 17:45 Chloride 105.0 mmol/L (98-107) 05/07/17 17:45 Glucose 110 mg/dl (75-110) 05/07/17 17:45 Lactate 1.5 mmol/L (0.7-2.1) 05/07/17 17:45 FiO2 21.0 % 05/07/17 17:45 Sodium 139 mmol/L (132-148) 05/10/17 08:20 Potassium 4.3 mmol/L (3.6-5.0) 05/10/17 08:20 Chloride 107 mmol/L (98-107) 05/10/17 08:20 Carbon Dioxide 27 mmol/L (21-33) 05/10/17 08:20 Anion Gap 9 (10-20) L 05/10/17 08:20 BUN 14 mg/dL (7-21) 05/10/17 08:20 Creatinine 1.2 mg/dL (0.5-1.4) 05/10/17 08:20 Est GFR ( Amer) > 60 05/10/17 08:20 Est GFR (Non-Af Amer) > 60 05/10/17 08:20 Random Glucose 96 mg/dL (70-110) 05/10/17 08:20 Lactic Acid 1.4 mmol/L (0.7-2.1) 05/08/17 00:40 Calcium 8.9 mg/dL (8.4-10.5) 05/10/17 08:20 Total Bilirubin 0.5 mg/dL (0.2-1.3) 05/10/17 08:20 AST 35 U/L (17-59) 05/10/17 08:20 ALT 40 U/L (7-56) 05/10/17 08:20 Alkaline Phosphatase 50 U/L (38-126) 05/10/17 08:20 Total Creatine Kinase 454 U/L (35-230) H 05/09/17 06:00 CK-MB (CK-2) 1.1 ng/mL (0.0-3.6) 05/09/17 06:00 CK-MB (CK-2) % Cancelled 05/08/17 06:00 C-React Prot High Sens > 15.00 mg/L (1.00-3.00) H 05/08/17 07:00 Total Protein 6.6 g/dL (5.8-8.3) 05/10/17 08:20 Albumin 3.3 g/dL (3.0-4.8) 05/10/17 08:20 Globulin 3.3 gm/dL 05/10/17 08:20 Albumin/Globulin Ratio 1.0 (1.1-1.8) L 05/10/17 08:20 Venous Blood Potassium 4.1 mmol/L (3.6-5.2) 05/07/17 17:45 Urine Color Yellow (YELLOW) 05/08/17 15:00 Urine Appearance Clear (CLEAR) 05/08/17 15:00 Urine pH 6.0 (4.7-8.0) 05/08/17 15:00 Ur Specific [place] 1.010 (1.005-1.035) 05/08/17 15:00 Urine Protein Negative mg/dL (<30 mg/dL) 05/08/17 15:00 Urine Glucose (UA) Negative mg/dL (NEGATIVE) 05/08/17 15:00 Urine Ketones Negative mg/dL (NEGATIVE) 05/08/17 15:00 Urine Blood Negative (NEGATIVE) 05/08/17 15:00 Urine Nitrate Negative (NEGATIVE) 05/08/17 15:00 Urine Bilirubin Negative (NEGATIVE) 05/08/17 15:00 Urine Urobilinogen 0.2 E.U./dL (<1 E.U./dL) 05/08/17 15:00 Ur Leukocyte Esterase Negative Dionte/uL (NEGATIVE) 05/08/17 15:00 - Hospital Course Hospital Course: 52 M with no significant PMHx presented [place] [facility] [place] with complaints of RLE pain & swelling. Pt stated he experienced a heaviness, swelling, and pain localized to the right groin. After a couple of hours in the afternoon, he started to realized his right leg develop "red streaks" and was warm to the touch. Pt stated that at that time he felt feverish and overall not so well. Pt stated that he has experienced cellulitis approximately 5 times in the past and his current symptoms are similar in presentation to his previous episodes. 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 At the time of examination , pt had mild complaints of right groin swelling and pain, rated at a 5/10 and localized without radiation. Pt denied RLE pain. In the ED, labs and imaging were obtained. Labs were significant for an elevated WBC of 16, creatinine of 1.5, and CK of 454. LE US was negative for DVT. LE x-ray was negative. Pt was admitted for evaluation and treatment for RLE cellulitis. ID was consulted, antibiotic recommendations were appreciated, which resulted in daily improvement in RLE swelling, pain, and leukocytosis. JASON resolution. CK was likely elevated due to exercise and resolved during hospital course. Today, pt was seen and examined at bedside. Pt states that pain and swelling in his RLE have significantly decreased. Pt denied fever, chills, CP, SOB, LE pain and swelling, fatigue, or dizziness. Blood cultures were negative after 48 hours. Pt clincially stable and was discharged and given prescriptions for PO antibiotics as per ID recommendations. Discharge Exam - Head Exam Head Exam: ATRAUMATIC, NORMAL INSPECTION, NORMOCEPHALIC - Eye Exam Eye Exam: EOMI, PERRL - ENT Exam ENT Exam: Mucous Membranes Moist - Neck Exam Neck exam: Full Rom - Respiratory Exam Respiratory Exam: Clear to PA & Lateral. absent: Rales, Rhonchi, Wheezes - Cardiovascular Exam Cardiovascular Exam: RRR. absent: Diastolic murmur, Gallop, Rubs, Systolic Murmur - GI/Abdominal Exam GI & Abdominal Exam: Soft. absent: Distended, Guarding, Rebound, Rigid, Tenderness - Extremities Exam Additional comments: Decreased erythema and swelling of the RLE, pedal pulses intact, no focal sensory or motor deficits in RLE - Neurological Exam Neurological exam: Alert, Oriented x3 - Psychiatric Exam Psychiatric exam: Normal Affect, Normal Mood - Skin Skin Exam: Dry, Intact, Normal Color Discharge Plan - Discharge Medications Prescriptions: Amoxicillin/Potassium Clav [Augmentin 500 mg-125 mg] 1 tab PO BID 7 Days tab Doxycycline Hyclate 100 mg PO BID 7 Days capsule - Follow Up Plan Condition: FAIR Disposition: HOME/ ROUTINE Instructions: Cellulitis (DC), Cellulitis (GEN) Additional Instructions: 1. Follow up with PMD within 1 week 2. HIV testing outpatient 3. Take medications prescribed, complete all antibiotics 4. Return to ED if symptoms worsen Referrals: Deny Shen MD [Primary Care Provider] - <Satnam Sagastume - Last Filed: 05/11/17 08:03> Provider - Provider Date of Admission: 05/07/17 19:45 Attending physician: Deny Shen MD covering for dr shen discussed w/ resident at length and also spoke w/ id=dr michael po abs x 2 s/p hosp to follow up w/ dr shen in 3 days d/c home improved greatly and patient feels back to normal and ready to go for a run but he knows he has to rest Primary care physician: Deny Shen MD Hospital Course - Lab Results Lab Results: Most Recent Lab Values WBC 4.2 10^3/ul (4.5-11.0) L D 05/10/17 08:20 RBC 4.83 10^6/uL (3.5-6.1) 05/10/17 08:20 Hgb 14.7 g/dL (14.0-18.0) 05/10/17 08:20 Hct 42.1 % (42.0-52.0) 05/10/17 08:20 MCV 87.2 fl (80.0-105.0) 05/10/17 08:20 MCH 30.4 pg (25.0-35.0) 05/10/17 08:20 MCHC 34.9 g/dl (31.0-37.0) 05/10/17 08:20 RDW 13.2 % (11.5-14.5) 05/10/17 08:20 Plt Count 115 10^3/uL (120.0-450.0) L 05/10/17 08:20 MPV 10.2 fl (7.0-11.0) 05/10/17 08:20 Gran % 62.4 % (50.0-68.0) 05/10/17 08:20 Lymph % (Auto) 23.3 % (22.0-35.0) 05/10/17 08:20 [place] % (Auto) 12.4 % (1.0-6.0) H 05/10/17 08:20 Eos % (Auto) 1.7 % (1.5-5.0) 05/10/17 08:20 Baso % (Auto) 0.2 % (0.0-3.0) 05/10/17 08:20 Gran # 2.63 (1.4-6.5) 05/10/17 08:20 Lymph # 1.0 (1.2-3.4) L 05/10/17 08:20 [place] # 0.5 (0.1-0.6) 05/10/17 08:20 Eos # 0.1 (0.0-0.7) 05/10/17 08:20 Baso # 0.01 K/mm3 (0.0-2.0) 05/10/17 08:20 Neutrophils % (Manual) 90 % (50.0-70.0) H 05/07/17 17:45 Band Neutrophils % 4 % (0-2) H 05/07/17 17:45 Lymphocytes % (Manual) 4 % (22.0-35.0) L 05/07/17 17:45 Atypical Lymphs % 2 % (0.0-0.0) H 05/07/17 17:45 Monocytes % (Manual) 0 % (1.0-6.0) L 05/07/17 17:45 Platelet Evaluation Normal (NORMAL) 05/07/17 17:45 ESR 1 mm/hr (0.00-15.0) 05/08/17 06:00 PT 12.6 Seconds (9.9-11.8) H 05/08/17 06:00 INR 1.17 (0.93-1.08) H 05/08/17 06:00 APTT 31.5 Seconds (23.7-30.8) H 05/08/17 06:00 pO2 54 mm/Hg (30-55) 05/07/17 17:45 VBG pH 7.40 (7.32-7.43) 05/07/17 17:45 VBG pCO2 43.0 (40-60) 05/07/17 17:45 VBG HCO3 26.6 mmol/l (21-28) 05/07/17 17:45 VBG Total CO2 27.9 mmol.L (22-28) 05/07/17 17:45 VBG O2 Sat (Calc) 95.0 % (40-65) H 05/07/17 17:45 VBG Base Excess 1.5 mmol/L (0.0-2.0) 05/07/17 17:45 VBG Potassium 4.1 mmol/L (3.6-5.2) 05/07/17 17:45 Sodium 138.0 mmol/L (132-148) 05/07/17 17:45 Chloride 105.0 mmol/L (98-107) 05/07/17 17:45 Glucose 110 mg/dl (75-110) 05/07/17 17:45 Lactate 1.5 mmol/L (0.7-2.1) 05/07/17 17:45 FiO2 21.0 % 05/07/17 17:45 Sodium 139 mmol/L (132-148) 05/10/17 08:20 Potassium 4.3 mmol/L (3.6-5.0) 05/10/17 08:20 Chloride 107 mmol/L (98-107) 05/10/17 08:20 Carbon Dioxide 27 mmol/L (21-33) 05/10/17 08:20 Anion Gap 9 (10-20) L 05/10/17 08:20 BUN 14 mg/dL (7-21) 05/10/17 08:20 Creatinine 1.2 mg/dL (0.5-1.4) 05/10/17 08:20 Est GFR ( Amer) > 60 05/10/17 08:20 Est GFR (Non-Af Amer) > 60 05/10/17 08:20 Random Glucose 96 mg/dL (70-110) 05/10/17 08:20 Lactic Acid 1.4 mmol/L (0.7-2.1) 05/08/17 00:40 Calcium 8.9 mg/dL (8.4-10.5) 05/10/17 08:20 Total Bilirubin 0.5 mg/dL (0.2-1.3) 05/10/17 08:20 AST 35 U/L (17-59) 05/10/17 08:20 ALT 40 U/L (7-56) 05/10/17 08:20 Alkaline Phosphatase 50 U/L (38-126) 05/10/17 08:20 Total Creatine Kinase 454 U/L (35-230) H 05/09/17 06:00 CK-MB (CK-2) 1.1 ng/mL (0.0-3.6) 05/09/17 06:00 CK-MB (CK-2) % Cancelled 05/08/17 06:00 C-React Prot High Sens > 15.00 mg/L (1.00-3.00) H 05/08/17 07:00 Total Protein 6.6 g/dL (5.8-8.3) 05/10/17 08:20 Albumin 3.3 g/dL (3.0-4.8) 05/10/17 08:20 Globulin 3.3 gm/dL 05/10/17 08:20 Albumin/Globulin Ratio 1.0 (1.1-1.8) L 05/10/17 08:20 Venous Blood Potassium 4.1 mmol/L (3.6-5.2) 05/07/17 17:45 Urine Color Yellow (YELLOW) 05/08/17 15:00 Urine Appearance Clear (CLEAR) 05/08/17 15:00 Urine pH 6.0 (4.7-8.0) 05/08/17 15:00 Ur Specific [place] 1.010 (1.005-1.035) 05/08/17 15:00 Urine Protein Negative mg/dL (<30 mg/dL) 05/08/17 15:00 Urine Glucose (UA) Negative mg/dL (NEGATIVE) 05/08/17 15:00 Urine Ketones Negative mg/dL (NEGATIVE) 05/08/17 15:00 Urine Blood Negative (NEGATIVE) 05/08/17 15:00 Urine Nitrate Negative (NEGATIVE) 05/08/17 15:00 Urine Bilirubin Negative (NEGATIVE) 05/08/17 15:00 Urine Urobilinogen 0.2 E.U./dL (<1 E.U./dL) 05/08/17 15:00 Ur Leukocyte Esterase Negative Dionte/uL (NEGATIVE) 05/08/17 15:00
== END 2017-05-10 14:02 | disposition home or self-care (01) | DRG 872 ==
LOC: ED 17:01 → ERH 19:45 → 5RSO 22:00
PROVIDERS: ADMIT Internal Medicine; ATTEND Internal Medicine
DX: A41.9 Sepsis, unspecified organism (principal); L03.115 Cellulitis of right lower limb; N17.9 Acute kidney failure, unspecified; E86.0 Dehydration; B35.3 Tinea pedis